=== PATIENT | male | born 1975 | race Caucasian/White ===

== ENCOUNTER 2018-04-27 02:35 | Emergency (ER) | payer SELFPAY ==
[~2018-04-27] VITALS: Ht 177.8 cm; Wt 88.5 kg
[2018-04-27 02:41] VITALS: BP 143/90
--- NOTE | 2018-04-27 02:46 | NUR ---
VISION ACUITY BOTH EYE 20/25, RT EYE 20/25 LEFT EYE 20/40
--- NOTE | 2018-04-27 02:47 | NUR ---
TO BED # 7 AMBULATORY, REPORT GIVEN TO ELEANOR MITCHELL
--- NOTE | 2018-04-27 03:14 | NUR ---
43/M CAME IN ED, C/O R EYE REDNESS, X2 DAYS WORSENING TODAY. PT DENIES ANY PAIN OR ITCHING OR VISUAL DISTURBANCES. PT DENIES ANY TRAUMA OR INJURY. PT REPORTS HAVING A SIMILAR EPISODE ON R EYE, WAS SEEN BY PCP, WAS DX ALLERGY. PT TOOK LORATADINE WITH NO RELIEF. HX GERD RX LORATADINE, OMEPRAZOLE
[2018-04-27] MEDS ORDERED: TETRACAINE HCL/PF 0.5% OPTH 4 ML BTL ONE (03:56)
[2018-04-27] MEDS ORDERED: FLUORESCEIN OPTH STRIP 0.6 MG ONE (03:57)
[2018-04-27] MEDS ORDERED: TETRACAINE HCL/PF 0.5% OPTH 4 ML BTL OP ONE (04:00)
--- NOTE | 2018-04-27 04:00 | NUR ---
ER MD AT BEDSIDE TO EVALUATE AND TO PERFORM TONOMETER
[2018-04-27 04:14] VITALS: BP 119/78
--- NOTE | 2018-04-27 04:14 | NUR ---
Patient discharged with v/s stable. Written and verbal after care instructions given and explained. Patient alert, oriented and verbalized understanding of instructions. Ambulatory with steady gait. All questions addressed prior to discharge. ID band removed. Patient advised to follow up with PMD. Rx of KETOROLAC OPHTHALMIC SOLUTION, CIPRO OPTHALMIC SOLUTION given. Patient educated on indication of medication including possible reaction and side effects. Opportunity to ask questions provided and answered.
== END 2018-04-27 04:14 | disposition home or self-care (01) ==
LOC: MED 02:35
DX: H10.31 Unspecified acute conjunctivitis, right eye (principal)
CPT/HCPCS: 99283